=== PATIENT | female | born 1980 | race Two or more races ===

== ENCOUNTER 2016-12-22 21:18 | Emergency (ER) | payer SELFPAY ==
[~2016-12-22] VITALS: Ht 167.6 cm; Wt 68.5 kg
[2016-12-22 21:39] VITALS: BP 144/69
--- NOTE | 2016-12-22 22:39 | NUR ---
PT TAKEN TO BED 8
--- NOTE | 2016-12-22 22:43 | NUR ---
PT IS 36/F BIB BOYFRIEND TO ED WITH C/O RASHES ALL OVER HER BODY , STARTED TODAY PT STATES NO MED HX. DENIES N/V/D; SKIN IS PINK/WARM/DRY; AAOX4 WITH EVEN AND STEADY GAIT; LUNGS CLEAR BL; HR EVEN AND REGULAR; PT DENIES ANY FEVER, CP, SOB, OR COUGH AT THIS TIME; PATIENT STATES PAIN OF 0/10 AT THIS TIME; VSS; PATIENT POSITIONED FOR COMFORT; HOB ELEVATED; BEDRAILS UP X2; BED DOWN. ER MD MADE AWARE OF PT STATUS.
--- NOTE | 2016-12-22 22:59 | NUR ---
Dr. Gonzales evaluating patient at bedside.
[2016-12-22 23:28] VITALS: BP 131/67
== END 2016-12-22 23:28 | disposition home or self-care (01) ==
LOC: MED 21:18
DX: R21 Rash and other nonspecific skin eruption (principal)
CPT/HCPCS: 99283